=== PATIENT | female | born 1950 | race Caucasian/White ===

== ENCOUNTER 2018-08-30 08:32 | Inpatient (IN) ==
--- NOTE | 2018-08-30 09:07 | PROVIDER DOCUMENTATION ---
HPI-General Adult - General Chief Complaint: Shortness of Breath Stated Complaint: POSS PNEUMONIA ,SENT DOWN BY DR. Marrero Seen by Provider: 08/30/18 08:55 Source: patient Allergies/Adverse Reactions: Patient Allergies Allergy/AdvReac Type Severity Reaction Status Date / Time sulfamethoxazole AdvReac ABDOMINAL Verified 03/13/18 17:57 [From Bactrim] PAIN trimethoprim [From Bactrim] AdvReac ABDOMINAL Verified 03/13/18 17:57 PAIN Home Medications: Home Medication List Medication Instructions Recorded Confirmed Last Taken Type RX: Budesonide/Formoterol Inhaler 1 puff INH BID 01/30/15 03/13/18 03/13/18 07:00 History [Symbicort 160/4.5 Microgm Inhaler] RX: Furosemide 40 mg PO PRN PRN 01/30/15 03/13/18 03/13/18 07:00 History RX: Tiotropium [place] Inhaler 1 puff INH RTDAILY 01/30/15 03/13/18 03/13/18 07:00 History [Spiriva] RX: Dicyclomine HCl [Bentyl] 20 mg PO DAILY PRN 08/27/15 03/13/18 Unknown History RX: Digoxin [Lanoxin] 1 each PO DAILY 08/27/15 03/13/18 03/13/18 07:00 History RX: Insulin Lispro [Humalog 15 units SUBQ DAILY 08/27/15 03/13/18 03/13/18 07:00 History Kwikpen U-100] RX: Magnesium Oxide [Mag-Ox] 400 mg PO DAILY 08/27/15 03/13/18 03/13/18 07:00 History RX: PRAVAstatin [Pravachol] 20 mg PO DAILY 08/27/15 03/13/18 03/12/18 20:00 History RX: Carvedilol [Coreg] 25 mg PO BID #0 tablet 09/09/15 03/13/18 03/13/18 07:00 Rx RX: Omeprazole [Prilosec] 40 mg PO DAILY #0 capsule 09/09/15 03/13/18 03/13/18 07:00 Rx RX: Ibuprofen 2 tab PO Q8H PRN PRN 09/17/17 03/13/18 Unknown History RX: Losartan [Cozaar] 50 mg PO DAILY 09/17/17 03/13/18 03/13/18 07:00 History RX: Potassium Chloride E.r. 10 meq PO DAILY 09/17/17 03/13/18 03/13/18 07:00 History [Klor-Con] RX: Trazodone [Desyrel] 150 mg PO HS PRN PRN 09/17/17 03/13/18 Unknown History Albuterol [Albuterol Neb] 2.5 mg INH RTQ6H #120 neb 09/22/17 03/13/18 Unknown Rx CefUROXIME [Ceftin] 500 mg PO Q12HR #28 tab 09/22/17 03/13/18 Unknown Rx RX: Citalopram Hydrobromide 20 mg PO QHS #30 tab 09/22/17 03/13/18 03/12/18 20:00 Rx [Citalopram HBr] RX: Prednisone See Taper PO DAILY #15 tab 09/22/17 03/13/18 Unknown Rx Insulin Glargine [Lantus] 50 unit SUBQ QHS 03/13/18 03/13/18 03/12/18 20:00 History - History of Present Illness -Gen Adult Nature of Presenting Problems: Pt. is 67 yof that presents with c/o SOB. Pt. has a Hx of COPD and her PCP sent her to the ED for evaluation. Pt. is on home O2 all the time and she reports she stopped smoking. Location of Pain/Injury: reports: none. denies: head, face, mouth, neck, chest, upper extremity, hand(s), abdomen, back, pelvis, genitalia, lower extremity, feet, upper body, lower body, generalized, other Pain Radiation: reports: no radiation. denies: arm(s), back, buttocks, chest, epigastric, feet, groin, jaw, flank (L), legs (lower), LLQ, LUQ, neck, periumbilical, flank (R), RLQ, RUQ, shoulder(s), scapula, scrotal, sternal notch, suprapubic, legs (upper), urethral, vaginal, other Quality of Pain: reports: none. denies: aching, burning, cramping, pressure, stabbing, throbbing, tightness Severity: reports: mild. denies: moderate, severe Onset/Duration: reports: gradual, 1 week ago Timing: reports: still present. denies: improving, gone now, constant, getting worse Context/Activities at Onset: reports: none. denies: light activity, moderate activity, vigorous activity, recent emotional stress, recent physical stress, recent trauma history, possible bad food, cold exposure, eating, out of country travel, rest, sleep, sexual activity, other Modifying Factors: improves with: nothing Associated Symptoms: reports: cough, shortness of breath. denies: denies symptoms, anxiety, arm pain, back/neck pain, chest pain, constipation, diaphoresis, diarrhea, dizziness, EENT symptoms, fatigue, fever/chills, genitourinary problems, headaches, heartburn, joint pain, loss of appetite, malaise, muscle aches, sinus congestion/drainage, nausea, rash, seizure, sensory/motor loss, pain with inspiration, swelling/mass in abdomen, syncope, vomiting, weakness, trouble walking, other Similar Symptoms Previously?: Yes Recently seen or treated by another doctor?: Yes Review of Systems - Adult - REVIEW OF SYSTEMS - ADULT Constitutional: reports: no symptoms reported Eyes: reports: no symptoms reported Ears, Nose, Mouth & Throat: reports: no symptoms reported Cardiovascular: reports: no symptoms reported Respiratory: reports: see HPI, cough, shortness of breath. denies: hemoptysis, pleurisy, wheezing Gastrointestinal: reports: no symptoms reported Genitourinary: reports: no symptoms reported Musculoskeletal: reports: no symptoms reported Integumentary: reports: no symptoms reported Neurological: reports: no symptoms reported Psychiatric: reports: no symptoms reported Past History - Adult - PAST MEDICAL HISTORY-ADULT Review of Records: reports: Old Records Reviewed, Nursing Assessment Review, Medications Reviewed, Social history reviewed & non-contributory. Major Childhood Illnesses: reports: denies history Cardiovascular: reports: HTN, hyperlipidemia Respiratory: reports: asthma, COPD Gastrointestinal: reports: denies history Musculoskeletal: reports: denies history Endocrine/Immune: reports: Diabetes - PRIOR SURGERIES/PROCEDURES Surgical/Procedure History: reports: BTL - IMMUNIZATION STATUS Childhood Immunizations: See Nurse Assessment Flu Vaccine: See Nurse Assessment - FAMILY HISTORY Family History: reviewed, not pertinent - SOCIAL HISTORY Smoking: quit greater than 1 year Physical Exam-General - PHYSICAL EXAM-ADULT Initial Vital Signs Reviewed: Yes - CONSTITUTIONAL General Appearance: alert, no apparent distress, obese. negative: thin, a nxious, lethargic, slow to respond, obtunded, combative - EYES Eyes: PERRL/EOMI, pink conjunctivae. negative: pale conjunctivae, scleral icterus, subconjunctival hemorrhage - HEAD, EARS, NOSE, MOUTH & THROAT HENMT: normocephalic/atraumatic, moist mucous membranes. negative: angioedema, frontal tenderness, maxillary tenderness - NECK Neck: non-tender, full range of motion, supple, normal inspection. negative: lymphadenopathy, trachial deviation, thyromegaly - RESPIRATORY Respiratory: no respiratory distress, no accessory muscle use, decreased breath sounds. negative: no pleuratic chest pain, respiratory distress, crackles, rales, rhonchi, stridor, wheezing - CARDIOVASCULAR Cardiovascular: normal peripheral pulses, regular rate, rhythm, no edema. negative: extra beats, friction rub, irregularly irregular - GASTROINTESTINAL (ABDOMEN) Abdominal Exam: normal bowel sounds, non tender, soft. negative: rigid, rebound, tenderness, hernia, mass - LYMPHATIC Lymphatic: no adenopathy. negative: axilla node tender, cervical node tenderness - MUSCULOSKELETAL Back Exam: normal inspection, no CVA tenderness, no vertebral tenderness. negative: scoliosis, swelling, vertebral tenderness Extremity: normal range of motion, non-tender, normal inspection. negative: deformity, erythema, inflammation, swelling, tenderness Peripheral Pulses: radial (R): 2+, radial (L): 2+ - SKIN Integumentary: normal color, normal turgor, warm/dry. negative: cyanosis, diaphoresis, jaundice, swelling, tenderness - NEUROLOGIC Neurologic: grossly normal, no motor/sensory deficits. negative: aphasia, facial droop, focal weakness, motor weakness, sensory deficit - PSYCHIATRIC Psych/Mental Status: normal mood/affect, normal thought content, normal thought process, oriented x 3. negative: anxious, paranoid, tearful Progress - PLAN OF CARE/RESULTS Progress/Plan/Lab Results: Vital Signs - 8 hr 08/30/18 08:48 Temperature 98.4 F Pulse Rate 98 H Respiratory Rate 22 Blood Pressure 106/75 O2 Sat by Pulse Oximetry 88 L Orders Category Date Time Status Cardiac Monitoring DIRECTED Care 08/30/18 08:53 Active IV Insertion ORDERED Care 08/30/18 08:53 Active Notify MD of + Sepsis Screen NOW Care 08/30/18 08:53 Active Notify Physician As Ordered Care 08/30/18 08:53 Active CHEST-1 VIEW [RAD] Stat Exams 08/30/18 08:53 Ordered BLOOD CULTURE [BLDCUL] Stat Lab 08/30/18 08:53 Uncollected CBC WITH DIFF [HEME] Stat Lab 08/30/18 08:53 Uncollected CK PROFILE [SP CHEM] Stat Lab 08/30/18 08:53 Uncollected COMPREHENSIVE METABOLIC PANEL [CHEM] Stat Lab 08/30/18 08:53 Uncollected LACTATE, PLASMA [CHEM] Q3H Lab 08/30/18 09:00 Uncollected LACTATE, PLASMA [CHEM] Q3H Lab 08/30/18 12:00 Uncollected LACTATE, PLASMA [CHEM] Q3H Lab 08/30/18 15:00 Uncollected PROTIME WITH INR [COAG] Stat Lab 08/30/18 08:53 Uncollected PTT [COAG] Stat Lab 08/30/18 08:53 Uncollected TROPONIN T Stat Lab 08/30/18 08:53 Uncollected URINALYSIS W/POSS RFLX CULT [URINALYSIS] Stat Lab 08/30/18 08:53 Uncollected Oxygen Device Stat Oth 08/30/18 08:53 Active Laboratory Tests 08/30/18 08/30/18 08/30/18 09:22 09:22 09:22 WBC 6.68 RBC 4.34 Hgb 12.1 Hct 39.1 MCV 90.1 MCH 27.9 MCHC 30.9 L RDW Std Deviation 15.4 H Plt Count 201 MPV 10.6 H Immature Gran % (Auto) 0.4 Neut % (Auto) 67.2 Lymph % (Auto) 21.0 [place] % (Auto) 9.3 Eos % (Auto) 1.8 Baso % (Auto) 0.3 Immature Gran # (Auto) 0.03 Neut # (Auto) 4.49 Lymph # (Auto) 1.40 [place] # (Auto) 0.62 H Eos # (Auto) 0.12 Baso # (Auto) 0.02 PT 12.4 INR 0.86 PTT (Actin FS) 37.4 Specimen Type Sample Site pH pCO2 pO2 HCO3 Base Excess Oxyhemoglobin ABG O2 Sat (Calculated) ABG O2 Saturation ABG Carboxyhemoglobin ABG Methemoglobin Jul[place] Test A-a O2 Difference Total Hemoglobin Lactate Liter Flow Blood Gas Modality FiO2 % Sodium 142 Potassium 4.1 Chloride 99 Carbon Dioxide 33 Anion Gap 10 BUN 23 H Creatinine 0.9 Estimated GFR/1.73 m2 > 60 BUN/Creatinine Ratio 26 Glucose 229 H Calculated Osmolality 294 Calcium 9.1 Total Bilirubin 0.43 AST 21 ALT 24 Alkaline Phosphatase 108 H Creatine Kinase 64 Troponin T Total Protein 6.5 Albumin 3.8 Globulin 2.7 Albumin/Globulin Ratio 1.4 Plasma Lactate Urine Source Urine Color Urine Turbidity Urine pH Ur Specific [place] Urine Protein Ur Glucose (Stick) Ur Ketones (Stick) Urine Blood Urine Nitrite Urine Bilirubin Urobilinogen Dipstick Urine Leukocytes Urine WBC (Auto) Urine RBC (Auto) U Epithel Cells (Auto) Urine Bacteria (Auto) 08/30/18 08/30/18 08/30/18 09:22 09:22 10:12 WBC RBC Hgb Hct MCV MCH MCHC RDW Std Deviation Plt Count MPV Immature Gran % (Auto) Neut % (Auto) Lymph % (Auto) [place] % (Auto) Eos % (Auto) Baso % (Auto) Immature Gran # (Auto) Neut # (Auto) Lymph # (Auto) [place] # (Auto) Eos # (Auto) Baso # (Auto) PT INR PTT (Actin FS) Specimen Type ARTERIAL Sample Site R RADIAL pH 7.31 L pCO2 71 H* pO2 74 HCO3 30.4 H Base Excess 7.2 H Oxyhemoglobin 92.7 L ABG O2 Sat (Calculated) 16.0 ABG O2 Saturation 95.7 ABG Carboxyhemoglobin 2.00 ABG Methemoglobin 1.1 [place] Test YES A-a O2 Difference 65.0 Total Hemoglobin 12.2 Lactate 0.80 Liter Flow 3.0 Blood Gas Modality CANNULA FiO2 % 32.0 Sodium Potassium Chloride Carbon Dioxide Anion Gap BUN Creatinine Estimated GFR/1.73 m2 BUN/Creatinine Ratio Glucose Calculated Osmolality Calcium Total Bilirubin AST ALT Alkaline Phosphatase Creatine Kinase Troponin T < 0.010 Total Protein Albumin Globulin Albumin/Globulin Ratio Plasma Lactate 1.1 Urine Source Urine Color Urine Turbidity Urine pH Ur Specific [place] Urine Protein Ur Glucose (Stick) Ur Ketones (Stick) Urine Blood Urine Nitrite Urine Bilirubin Urobilinogen Dipstick Urine Leukocytes Urine WBC (Auto) Urine RBC (Auto) U Epithel Cells (Auto) Urine Bacteria (Auto) 08/30/18 11:00 WBC RBC Hgb Hct MCV MCH MCHC RDW Std Deviation Plt Count MPV Immature Gran % (Auto) Neut % (Auto) Lymph % (Auto) [place] % (Auto) Eos % (Auto) Baso % (Auto) Immature Gran # (Auto) Neut # (Auto) Lymph # (Auto) [place] # (Auto) Eos # (Auto) Baso # (Auto) PT INR PTT (Actin FS) Specimen Type Sample Site pH pCO2 pO2 HCO3 Base Excess Oxyhemoglobin ABG O2 Sat (Calculated) ABG O2 Saturation ABG Carboxyhemoglobin ABG Methemoglobin Jul[place] Test A-a O2 Difference Total Hemoglobin Lactate Liter Flow Blood Gas Modality FiO2 % Sodium Potassium Chloride Carbon Dioxide Anion Gap BUN Creatinine Estimated GFR/1.73 m2 BUN/Creatinine Ratio Glucose Calculated Osmolality Calcium Total Bilirubin AST ALT Alkaline Phosphatase Creatine Kinase Troponin T Total Protein Albumin Globulin Albumin/Globulin Ratio Plasma Lactate Urine Source CLEAN CATCH Urine Color YELLOW Urine Turbidity CLEAR Urine pH 5.5 Ur Specific [place] 1.017 Urine Protein NEGATIVE Ur Glucose (Stick) NEGATIVE Ur Ketones (Stick) NEGATIVE Urine Blood NEGATIVE Urine Nitrite NEGATIVE Urine Bilirubin NEGATIVE Urobilinogen Dipstick NORMAL Urine Leukocytes NEGATIVE Urine WBC (Auto) <10 Urine RBC (Auto) <10 U Epithel Cells (Auto) <10 Urine Bacteria (Auto) NEGATIVE Discussed results and plan of care with patient. Patient agrees with plan and verbalizes understanding. Result Diagrams: 08/30/18 09:22 08/30/18 09:22 - EKG 1 Time of EKG reading by physician:: 09:12 EKG Read and Signed by:: Silvana Arreaga EKG Interpretation (*Must complete 3 of following elements*): Normal Rate: 95 Rhythm: NSR - XRAY 1 XRAY Study: Chest ([facility] [address] , [address], [place] [address] Department of Imaging Patient: JUAN KERR Date: 08/30/18#: [id number] : 1950ADM Status: PRE ERAcct#: [id number] Age/Sex: 67/FRoom/Bed: Loc: ED Ordering Physician: Silvana Arreaga MD Family Physician: Joaquín Cotto MD Reason for Procedure: SOB Signed EXAM: CHEST-1 VIEW 08/30/2018 HISTORY: SOB TECHNIQUE: AP portable upright at 0904 COMMENT: There is ill-defined opacity in the left lower lobe which was not as apparent on the previous study of 02/08/2018. The right lung is essentially stable. The heart size is slightly enlarged. IMPRESSION: Atelectasis versus pneumonia left lower lobe. Electronically signed by Guille Arellano 08/30/2018 9:08 AM 08/30/18 09 Interpreting Physician: Guille Arellano MD Dictated Date/Time: 08/30/18 0908 cc: Silvana Arreaga MD; Joaquín Cotto MD) XRAY Interpretation: See note - CONSULTS/PCP/HOSPITALIST Notification #1 *Consult/PCP/Hospitalist*: Ryan Manuel Time Discussed: 11:32 Reason/Comments: Admission Consult Disposition: Will see in ED, Admit Departure - Departure Date of Disposition Decision: 08/30/18 Time of Disposition Decision: 11:23 DIAGNOSIS: COPD exacerbation Pneumonia Qualifiers: Pneumonia type: due to unspecified organism Laterality: unspecified laterality Lung location: unspecified part of lung Qualified Code(s): J18.9 - Pneumonia, unspecified organism Disposition: ADMITTED INPATIENT 09 Certified Medical Emergency: Emergent Condition: Stable Referrals and Follow-Ups: Joaquín Cotto MD [Primary Care Provider] - - Critical Care Note This patient required my direct & personal management of CC.: No Attestation - Physician/ BLANCA Attestation Patient care was provided by Advanced Practice Provider:: Yes Advanced Practice Provider:: Trever Harrell Advanced Practice Provider documentation review:: The Mid-level provider documentation, treatment plan and medical decision making was reviewed by the physician who agrees with all treatment and medical decision making by the P. The physician spent face to face time with patient:: No Advanced Practice Provider documentation review:: Supervising physician onsite and consulted in the evaluation and care of this patient. The physician did not have a face to face encounter with the patient.
--- NOTE | 2018-08-30 09:11 | Diag Imaging Result Doc PS360 ---
EXAM: CHEST-1 VIEW 08/30/2018 HISTORY: SOB TECHNIQUE: AP portable upright at 0904 COMMENT: There is ill-defined opacity in the left lower lobe which was not as apparent on the previous study of 02/08/2018. The right lung is essentially stable. The heart size is slightly enlarged. IMPRESSION: Atelectasis versus pneumonia left lower lobe. Electronically signed by Guille Arellano 08/30/2018 9:08 AM
[2018-08-30] MEDS ORDERED: ROCEPHIN 1 GM in NS 50 ML IV ONE (09:21)
[2018-08-30] MEDS ORDERED: SOLU-MEDROL IV ONE (09:22)
[2018-08-30] MEDS ORDERED: ZITHROMAX 500 MG/NS 500 MG/250 ML IVPB IV ONE (09:22)
[2018-08-30] MEDS ORDERED: DUONEB (A & A) INH ONE (09:22)
[2018-08-30 09:35] LABS: BASO# 0.02 X1000 (0.0-0.2); BASO% 0.3 % (0.0-0.8); EOS# 0.12 X1000 (0.0-0.7); EOS% 1.8 % (0.0-10.0); HEMATOCRIT 39.1 % (37.0-47.0); HEMOGLOBIN 12.1 g/dL (12.0-16.0); IMM GRAN# 0.03 X1000 (0.0-0.04); IMM GRAN% 0.4 % (0.0-0.5); MCH 27.9 PG (27-31); MCHC 30.9 g/dL (33-37); MCV 90.1 FL (81-99); MONO# 0.62 X1000 (0.11-0.59); MONO% 9.3 % (1.7-9.3); MPV 10.6 FL (7.4-10.4); NEUT# 4.49 X1000 (1.4-6.5); NEUT% 67.2 % (42.2-75.2); PLT 201 X1000 (130-400); RBC 4.34 XMIL (4.2-5.4); RDW 15.4 % (11.5-14.5); WBC 6.68 X1000 (4.8-10.8)
[2018-08-30 09:45] LABS: INR 0.86; PROTIME 12.4 Seconds (11.0-16.0)
[2018-08-30 09:46] LABS: PTT 37.4 Seconds (22.3-41.8)
--- NOTE | 2018-08-30 09:47 | EKG Report ---
Test Performed on : 08/30/2018 09:09:37 AM Test Reason : SOB Blood Pressure : / mmHG Vent. Rate : 095 BPM Atrial Rate : 095 BPM P-R Int : 112 ms QRS Dur : 082 ms QT Int : 344 ms P-R-T Axes : 044 002 -09 degrees QTc Int : 432 ms Normal sinus rhythm. Normal ECG When compared with ECG of 22-SEP-2017 00:31, Inverted T waves have replaced nonspecific T wave abnormality in Inferior leads Unconfirmed Result
[2018-08-30 09:55] LABS: AGAP 10; ALB/GLOB RATIO 1.4; ALBUMIN 3.8 g/dL (3.5-5.0); ALKALINE PHOSPHATASE 108 U/L (32-104); BUN 23 mg/dL (8-22); CALCIUM 9.1 mg/dL (8.8-10.2); CHLORIDE 99 mmol/L (98-107); CK PROFILE 64 U/L (24-173); COSMO 294; CREATININE 0.9 mg/dL (0.5-0.9); ESTIMATED GFR > 60; GLUCOSE 229 mg/dL (70-104); GOT 21 U/L (10-30); GPT 24 U/L (10-36); POTASSIUM 4.1 mmol/L (3.5-5.1); SODIUM 142 mmol/L (136-145); TCO2 33 mmol/L (25-35); TOTAL BILIRUBIN 0.43 mg/dL (0.20-1.00); TOTAL PROTEIN 6.5 g/dL (6.3-8.3)
[2018-08-30 10:22] LABS: ALLEN TEST YES; BE 7.2 mmoll (-3.0-3.0); BLOOD TYPE ARTERIAL; HCO3-(ACT) 30.4 mmoll (20.0-26.0); METHB 1.1 % (0.0-1.5); O2HB 92.7 % (95.0-99.0); PO2(98.6) 74 mmHg (60-100); SAMPLE BLOOD; SAO2 95.7 % (95.0-100.0); THB 12.2 g/dL (11.5-17.4); pH(98.6) 7.31 (7.35-7.45)
[2018-08-30 10:25] LABS: MODALITY CANNULA; PCO2(98.6) 71 mmHg (35-45)
[2018-08-30 11:12] LABS: BILIRUBIN URINE NEGATIVE (NEGATIVE); BLOOD URINE NEGATIVE (NEGATIVE); COLOR YELLOW; GLUCOSE URINE NEGATIVE (NEGATIVE); KETONE URINE NEGATIVE (NEGATIVE); LEUKOCYTES URINE NEGATIVE (NEGATIVE); NITRITE URINE NEGATIVE (NEGATIVE); PH URINE 5.5; PROTEIN URINE NEGATIVE (NEGATIVE); SP GRAVITY URINE 1.017; TURBIDITY URINE CLEAR (CLEAR); URINE SOURCE CLEAN CATCH; UROBILINOGEN URINE NORMAL (NORMAL)
[2018-08-30 11:14] LABS: UR EPITHELIAL CELLS <10 /HPF (<10); URINE BACTERIA NEGATIVE /HPF; URINE RBC <10 /HPF (<10); URINE WBC <10 /HPF (<10)
[2018-08-30] MEDS ORDERED: DUONEB (A & A) INH PRN (13:38)
[2018-08-30] MEDS ORDERED: LASIX IV ONE (13:47)
--- NOTE | 2018-08-30 15:00 | Diag Imaging Result Doc PS360 ---
EXAM: CT THORAX W/CONTRAST 08/30/2018 HISTORY: worsening resp function TECHNIQUE: This exam was performed using automated exposure control, adjustment of mA or kV according to patient size, and/or use of iterative reconstruction technique. COMMENT: There are severe emphysematous changes. There are patchy opacities in the lung bases particularly in the lower lingula anteromedial upper lobes and middle lobe. This was present at the time the previous study of 09/16/2017. There may actually be slight improvement. Most of this is likely due to fibrosis. The liver, spleen, adrenal glands, and visualized portions of the pancreas are stable in appearance. There are some large hepatic cysts in the left lobe. There is calcification of the mitral valve annulus and multiple calcifications in the coronary arteries are present. There are nonspecific nodes in the paratracheal and aorticopulmonary window regions which have not changed significantly since the previous study. The regional skeleton is stable in appearance. IMPRESSION: COPD. Chronic scarring. Stable mediastinal adenopathy. Electronically signed by Guille Arellano 08/30/2018 2:58 PM
--- NOTE | 2018-08-30 15:24 | HISTORY AND PHYSICAL ---
PRIMARY CARE PHYSICIAN: Joaquín Cotto MD. MARINE PHOTOGRAPHER: Billie Nicole MD. CHIEF COMPLAINT: Dyspnea. HISTORY OF PRESENT ILLNESS: Mrs. Chase is a 67-year-old female with a history of oxygen- dependent COPD, obstructive sleep apnea, type 2 diabetes, who presents with 2 weeks of waxing and waning dyspnea significantly worse over the past few days. She has been reporting low-grade fever, cough with sputum production and actually had some red-tinged sputum 2 weeks ago. She has been complaining of some mild orthopnea and lower extremity edema and some chest discomfort but mainly with coughing. She went to her PCP's office today, who directed to the ER for evaluation for pneumonia. In the ER, she had a chest x-ray done, which shows atelectasis versus pneumonia in the left lower lobe. Her lab work is significant for mild kfkiz-fr-gjofkel hypercapnic respiratory failure and her chemistry is essentially unremarkable. Given her symptoms and history, we are going to admit her for further treatment and evaluation. PAST MEDICAL HISTORY: 1. COPD on home O2. 2. Type 2 diabetes. 3. Hypertension. 4. Morbid obesity. 5. Obstructive sleep apnea. 6. History of respiratory failure requiring intubation. 7. Hyperlipidemia. PAST SURGICAL HISTORY: She has had a tubal ligation, tracheostomy with tracheostomy reversal. FAMILY HISTORY: Significant for diabetes, coronary artery disease, hypertension, hyperlipidemia. SOCIAL HISTORY: She lives with her sister. She is . She quit smoking around 2 years ago. No current tobacco, alcohol, or drug use. She does family members who smoke but they do not smoke in the house. ALLERGIES: Bactrim. HOME MEDICATIONS: Have not been compiled by the nursing staff. REVIEW OF SYSTEMS: A 14-point review of systems obtained and found to be negative except for the HPI. PHYSICAL EXAMINATION: VITAL SIGNS: Blood pressure is 155/62, heart rate is 77, respiratory rate 16, O2 saturation is 92% on 3 L, temperature is 98.4. GENERAL: Obese, female lying in the hospital bed in no acute distress. NEUROLOGICAL: Awake, alert, and oriented. Follows commands. No focal deficits. HEENT: Head is atraumatic and normocephalic. Her pupils are equal, round, and reactive to light. Oral mucosa is moist. NECK: Her trachea is midline. There is no JVD. CHEST: Diminished at the bases but fairly adequate air movement. No wheezing. CARDIOVASCULAR: Regular rate and rhythm. S1 and S2 is noted. There are no murmurs. GASTROINTESTINAL: Soft, nondistended, nontender. Bowel sounds are active. EXTREMITIES: Trace edema. Pulses diminished but palpable bilaterally. DIAGNOSTIC DATA: Chest x-ray shows left lower lobe atelectasis, which was not previously present, and the heart size is slightly enlarged. EKG sinus rhythm, no acute ST or T wave abnormalities. WBC 6.68, hemoglobin 12.1, hematocrit 39.1, platelet count 201. INR 0.86. ABG on nasal cannula 3 L: pH 7.31, CO2 71, O2 74, bicarbonate 30.4. Sodium 142, potassium 4.1, chloride 99, CO2 33, anion gap 10, BUN 23, creatinine 0.9, glucose is 229, calcium 9.1. LFTs are negative. Troponin, ProBNP negative. Albumin 3.8. UA negative. ASSESSMENT AND PLAN: 1. Fhsqv-ai-vifufle hypercapnic respiratory failure. Will start with a very mild dose of Lasix, breathing treatments, antibiotics, and steroids, and recheck a blood gas in the next few hours. If there is no improvement, she may need BiPAP but for now will hold off. Will also check a thorax CT, echocardiogram, and cardiac enzymes. 2. Chronic obstructive pulmonary disease exacerbation: As above. 3. Community-acquired pneumonia: As above. Continue breathing treatments, antibiotics, aggressive pulmonary toilet. Blood and sputum cultures have been ordered. 4. Question of congestive heart failure: Once small dose of Lasix has been given then will check an echocardiogram and cardiac enzymes. 5. Type 2 diabetes. Sliding scale insulin and pattern blood sugars have been ordered as has a hemoglobin A1c. 6. Morbid obesity. Weight reduction highly advised. 7. Deep venous thrombosis prophylaxis with Lovenox. 8. Further recommendations to follow. Dictated by NISREEN Hooper for Asa Manuel MD cc: NISREEN Hooper MD I agree with most components of history, physical assessment and plan. A separate addendum has been dictated. [facility]ITALKaitlyn
[2018-08-30] MEDS: DUONEB (A & A) INH SCH ×3 (15:26→23:25)
[2018-08-30] MEDS: TYLENOL PO PRN ×2 (17:33→20:20)
[2018-08-30] MEDS: LOVENOX SUBQ SCH (17:34)
[2018-08-30] MEDS: SOLU-MEDROL IV SCH (17:37)
[2018-08-30] MEDS ORDERED: BENTYL PO PRN (18:12)
[2018-08-30] MEDS ORDERED: LANOXIN IV ONE (18:12)
--- NOTE | 2018-08-30 18:54 | HISTORY AND PHYSICAL ---
Addendum to history and physical dictated by the nurse practitioner. I agree with most components of history, physical, assessment and plan. HISTORY OF PRESENT ILLNESS: In brief, Ms. Chase is a 67-year-old, lady with history of COPD and chronic hypoxic respiratory failure, who is admitted for worsening progressive shortness of breath. She had failed outpatient antibiotic therapy. SUBJECTIVE: The patient currently is feeling a little better than she has been when she came to the emergency room. She is complaining of some cough. She also had subjective fever. She is making some sputum. We discussed about her exam findings, answered all of her questions. She reports history of insulin-dependent diabetes mellitus, previous history of intubation for COPD exacerbation, nighttime use of BiPAP. Continuous use of oxygen. OBJECTIVE: Vital Signs: Currently, vitals, temperature 97.8, pulse 119 per minute, respiratory rate 19 per minute, blood pressure 173/84. She is saturating 90% on 2 L nasal cannula. General: On physical examination, she appears in mild distress. No pallor, cyanosis, clubbing, or icterus. Oral cavity is moist. Decreased breath sounds bilaterally, likely because of COPD. No wheezes. No rhonchi or crackles that I could appreciate. Cardiovascular: S1, S2. Tachycardic. No murmur, rub, or gallop. Abdomen: Soft, nontender. No lower extremity edema except bilateral lower extremity edema extending up to mid andrea level. LABS: Suggestive of no leukocytosis. Normal blood counts, normal platelet count. Normal coagulation profile. Acute hypercarbic respiratory failure with pCO2 of 71, and pH of 7.31. She has had chronic hypercarbia in the past. BMP suggestive of normal kidney function, hyperglycemia. Normal troponins. ASSESSMENT AND PLAN: 1. Acute hypercarbic respiratory failure. 2. Acute exacerbation of chronic obstructive pulmonary disease. 3. History of insulin-dependent diabetes mellitus. 4. Atrial fibrillation with rapid ventricular rate as informed by history. 5. History of chronic use of nighttime BiPAP. 6. History of morbid obesity. 7. Obstructive sleep apnea. 8. Histoyr of multiple E coli pneumonia. 9. Hyperlipidemia. PLAN: I will start patient on albuterol/ipratropium nebulization, nighttime BiPAP treatment. Insulin, home dose of Lasix and beta blockers. I will follow up with sputum culture results and blood culture results. I will start her on empiric antibiotics. Plan of care discussed with the patient and patient's daughter briefly. All of their questions have been answered. cc: Asa Manuel MD MTDD
[2018-08-30] MEDS: COREG PO SCH ×2 (18:56→20:23)
[2018-08-30] MEDS: SYMBICORT 160/4.5 MICROGM INHALER INH SCH (19:30)
[2018-08-30] MEDS: HUMALOG SUBQ SCH ×2 (20:22→22:43)
[2018-08-30] MEDS: BASAGLAR SUBQ SCH (20:37)
[2018-08-30] MEDS ORDERED: INSULIN PEN NEEDLES ONE (20:40)
[2018-08-30] MEDS ORDERED: COREG PO SCH (21:00)
[2018-08-30] MEDS ORDERED: BASAGLAR SUBQ SCH (21:00)
--- NOTE | 2018-08-30 23:28 | ECHO REPORT ---
ORDER DATE: 08/30/2018 SUMMARY: 1. Very difficult study for interpretation due to very limited acoustic window quality. Intravenous echo contrast agent was utilized to enhance endocardial definition. 2. Aortic valve without evidence of structural abnormality and appears to open adequately on 2- dimensional images. Peak gradient across the aortic valve is approximately 14 mmHg. Mitral annular calcification is demonstrated. Tricuspid valve is without evidence of structural abnormality while pulmonic valves is not well demonstrated. There is trace tricuspid regurgitation. The aortic root is normal in size. 3. Normal left ventricular dimension suggested. Estimated left ventricular ejection fraction appears to be at least 70%. No wall motion abnormality can be appreciated. Left atrium, right atrium, right ventricle are grossly in normal size. 4. No pericardial effusion. 5. Inferior vena cava not well demonstrated. cc: MD Baldomero Rojas CRNP
[2018-08-31] MEDS: SOLU-MEDROL IV SCH ×3 (02:23→18:31)
[2018-08-31] MEDS: DUONEB (A & A) INH SCH ×6 (03:40→23:17)
[2018-08-31 03:53] LABS: ALLEN TEST YES; BE 9.4 mmoll (-3.0-3.0); BLOOD TYPE ARTERIAL; HCO3-(ACT) 32.1 mmoll (20.0-26.0); METHB 1.3 % (0.0-1.5); O2(CT) 16.3 mL/dL (15.0-23.0); O2HB 91.7 % (95.0-99.0); PO2(98.6) 68 mmHg (60-100); SAMPLE BLOOD; SAO2 94.9 % (95.0-100.0); THB 12.6 g/dL (11.5-17.4); pH(98.6) 7.37 (7.35-7.45)
[2018-08-31 03:54] LABS: MODALITY BI PAP; PCO2(98.6) 64 mmHg (35-45)
[2018-08-31] MEDS: HUMALOG SUBQ SCH ×5 (06:15→23:21)
[2018-08-31 06:44] LABS: BASO# 0.02 X1000 (0.0-0.2); BASO% 0.4 % (0.0-0.8); HEMATOCRIT 39.8 % (37.0-47.0); HEMOGLOBIN 12.5 g/dL (12.0-16.0); IMM GRAN# 0.03 X1000 (0.0-0.04); IMM GRAN% 0.6 % (0.0-0.5); LYMPH% 17.3 % (20.5-51.1); MCHC 31.4 g/dL (33-37); MONO# 0.55 X1000 (0.11-0.59); MONO% 10.6 % (1.7-9.3); MPV 11.1 FL (7.4-10.4); NEUT# 3.71 X1000 (1.4-6.5); NEUT% 71.1 % (42.2-75.2); PLT 205 X1000 (130-400); RBC 4.47 XMIL (4.2-5.4); WBC 5.21 X1000 (4.8-10.8)
[2018-08-31 07:02] LABS: HEMOGLOBIN A1C 8.5 % (4.8-6.0)
[2018-08-31 07:17] LABS: AGAP 13; BUN 24 mg/dL (8-22); CALCIUM 8.9 mg/dL (8.8-10.2); CHLORIDE 97 mmol/L (98-107); COSMO 292; CREATININE 0.7 mg/dL (0.5-0.9); ESTIMATED GFR > 60; GLUCOSE 260 mg/dL (70-104); POTASSIUM 4.3 mmol/L (3.5-5.1); SODIUM 140 mmol/L (136-145); TCO2 30 mmol/L (25-35)
[2018-08-31] MEDS: SYMBICORT 160/4.5 MICROGM INHALER INH SCH ×2 (08:12→19:47)
[2018-08-31] MEDS: ROCEPHIN 1 GM in NS 50 ML IV SCH (09:01)
[2018-08-31] MEDS: PRAVACHOL PO SCH (09:02)
[2018-08-31] MEDS: COREG PO SCH ×2 (09:02→21:40)
[2018-08-31] MEDS: LANOXIN PO SCH (09:02)
[2018-08-31] MEDS: COZAAR PO SCH (09:02)
[2018-08-31] MEDS: MAG-OX PO SCH (09:02)
[2018-08-31] MEDS: PRILOSEC PO SCH (09:03)
[2018-08-31] MEDS: LASIX PO SCH (09:03)
[2018-08-31] MEDS: ZITHROMAX 500 MG/NS 500 MG/250 ML IVPB IV SCH (10:56)
--- NOTE | 2018-08-31 11:59 | PROGRESS NOTE ---
DATE: 08/31/2018 INTERVAL HISTORY: No acute event overnight. She is feeling better today. Denies any chest pain. She is feeling congested inside the chest, and is not able to bring up sputum. Denies any nausea, vomiting, or abdominal pain. Her sugars are better. We discussed about her heart rate and blood sugar control, I answered all of her questions. PHYSICAL EXAMINATION: Vital Signs: Currently, temperature 98.1 degrees, pulse 91, respiratory 26, blood pressure 140/48 and saturating 91% on 4 L nasal cannula. General: She does not appear in any acute distress. HEENT: Oral cavity is moist. No pharyngeal exudate or tonsillitis. No cervical lymphadenopathy. No postnasal drip. Lungs: Air entry bilaterally decreased. No wheeze or rhonchi. Mild infrascapular crackles. Cardiovascular: S1, S2. Irregularly irregular. No murmur, rub, or gallop. She is mildly tachycardic with heart rate of 96 at the time of my evaluation. Abdomen: Obese, soft, and nontender. Extremities: No lower extremity edema except only mild edema, which is better today than yesterday. Input and output not charted appropriately. LABORATORY: Labs suggestive of no leukocytosis. Stable hemoglobin, hematocrit, and platelet count. ABG suggestive of pH of 7.37, pCO2 of 64, compensated. BMP suggestive of normal kidney function. She continues to have hyperglycemia with blood sugar in 200s to 300s range for which I will adjust the blood sugar levels. Her troponin's were negative. Telemetry charted suggestive of sinus tachycardia with premature atrial contractions. Echocardiogram performed yesterday was suggestive of normal left ventricular ejection fraction of about 70% without any wall motion abnormality. It was a difficult study. ASSESSMENT AND PLAN: 1. Acute hypercarbic respiratory failure on top of chronic hypoxic hypercarbic respiratory failure due to acute COPD exacerbation. Continue patient on albuterol ipratropium nebulization every 4 hours scheduled with intravenous steroids and home Symbicort. Continue intravenous ceftriaxone and azithromycin. Follow up with blood culture and sputum culture results. 2. History of atrial fibrillation with rapid ventricular rate. Currently, rate in acceptable range. Continue patient's home digoxin, carvedilol, and Lasix. She is not listed to be taking any anticoagulation. She received IV digoxin yesterday. And I will order additional IV medications as tolerated. 3. History of insulin-dependent diabetes mellitus. Continue home dose of glargine with lispro and sliding scale insulin. I will adjust and in fact increased the dose today according as she is on steroids which is driving her sugars to go high. 4. Others. Continue home dicyclomine for abdominal discomfort, which is her home medication, losartan for essential hypertension, pravastatin for hyperlipidemia. 5. Continue nighttime BiPAP, which the patient has been using at home. 6. Disposition: Patient remains inside the hospital for need for intravenous steroids and frequent nebulization, and closely monitor her respiratory status. Plan of care discussed with the patient and her daughter at bedside. All of their questions have been answered. cc: Asa Manuel MD MTDD
[2018-08-31] MEDS: BIDEX PO SCH ×3 (12:54→21:41)
[2018-08-31] MEDS: LOVENOX SUBQ SCH (18:31)
[2018-08-31] MEDS ORDERED: LANOXIN IV ONE (19:17)
[2018-08-31] MEDS ORDERED: SOLU-MEDROL IV SCH (21:35)
[2018-08-31] MEDS: NEURONTIN PO SCH (21:41)
[2018-08-31] MEDS: BASAGLAR SUBQ SCH (21:41)
[2018-09-01] MEDS: SOLU-MEDROL IV SCH ×3 (01:28→21:48)
[2018-09-01] MEDS: DUONEB (A & A) INH SCH ×6 (03:41→23:03)
[2018-09-01] MEDS: HUMALOG SUBQ SCH ×7 (06:18→21:49)
[2018-09-01 07:37] LABS: BASO# 0.01 X1000 (0.0-0.2); BASO% 0.1 % (0.0-0.8); HEMATOCRIT 40.9 % (37.0-47.0); HEMOGLOBIN 12.8 g/dL (12.0-16.0); IMM GRAN# 0.03 X1000 (0.0-0.04); IMM GRAN% 0.4 % (0.0-0.5); LYMPH# 1.28 X1000 (1.2-3.4); LYMPH% 16.8 % (20.5-51.1); MCH 27.6 PG (27-31); MCHC 31.3 g/dL (33-37); MCV 88.3 FL (81-99); MONO# 0.42 X1000 (0.11-0.59); MONO% 5.5 % (1.7-9.3); NEUT% 77.2 % (42.2-75.2); PLT 222 X1000 (130-400); RBC 4.63 XMIL (4.2-5.4); RDW 14.9 % (11.5-14.5); WBC 7.64 X1000 (4.8-10.8)
[2018-09-01 08:02] LABS: AGAP 14; BUN 28 mg/dL (8-22); CALCIUM 9.4 mg/dL (8.8-10.2); CHLORIDE 98 mmol/L (98-107); COSMO 298; CREATININE 0.7 mg/dL (0.5-0.9); ESTIMATED GFR > 60; GLUCOSE 232 mg/dL (70-104); MAGNESIUM 2.2 mg/dL (1.5-2.7); POTASSIUM 3.7 mmol/L (3.5-5.1); SODIUM 143 mmol/L (136-145); TCO2 31 mmol/L (25-35)
[2018-09-01] MEDS: SYMBICORT 160/4.5 MICROGM INHALER INH SCH ×2 (08:26→19:36)
[2018-09-01] MEDS: BIDEX PO SCH ×3 (08:47→21:48)
[2018-09-01] MEDS: MAG-OX PO SCH (08:48)
[2018-09-01] MEDS: PRILOSEC PO SCH (08:48)
[2018-09-01] MEDS: PRAVACHOL PO SCH (08:48)
[2018-09-01] MEDS: COREG PO SCH ×2 (08:48→21:48)
[2018-09-01] MEDS: LANOXIN PO SCH (08:48)
[2018-09-01] MEDS: NEURONTIN PO SCH ×3 (08:49→21:48)
[2018-09-01] MEDS: ROCEPHIN 1 GM in NS 50 ML IV SCH (08:49)
[2018-09-01] MEDS: COZAAR PO SCH (08:49)
[2018-09-01] MEDS: LASIX PO SCH (08:49)
[2018-09-01] MEDS: ZITHROMAX 500 MG/NS 500 MG/250 ML IVPB IV SCH (11:49)
[2018-09-01] MEDS ORDERED: BASAGLAR SUBQ ONE (14:23)
--- NOTE | 2018-09-01 15:01 | PROGRESS NOTE ---
DATE: 09/01/2018 INTERVAL HISTORY: No acute event overnight, patient has been feeling fine. Denies any complaints. Denies chest pain. Her shortness of breath is significantly improved. She is not coughing as much as she used to. Currently vitals suggest temperature of 98.1 degrees, pulse of 104 per minute, respiratory 16 per minute, blood pressure of 173/80, she is saturating 93% on 3 L nasal cannula. PHYSICAL EXAMINATION: General: Morbidly obese, not in any acute distress. Oral cavity is moist. Air entry bilaterally equal. No wheeze or rhonchi. Mild inspiratory crackles bilateral infrascapular region. S1, S2 normal. No murmur, rub, or gallop. Abdomen: Soft, nontender. No lower extremity edema. LABS: Suggestive of no leukocytosis, eosinophil count of 0, normal platelet count. Electrolytes suggestive of normal electrolytes, normal kidney function except elevated BUN likely in the setting of steroid use, hyperglycemia. Microbiology, sputum culture prelim result has not shown any growth, blood culture no growth till date. ASSESSMENT AND PLAN: 1. Acute hypercarbic respiratory failure on top of chronic hypoxic hypercarbic respiratory failure due to acute chronic obstructive pulmonary disease exacerbation. Continue albuterol ipratropium nebulization every 4 hours scheduled with intravenous steroids and home Symbicort, decrease steroid frequency starting today. My plan is to eventually change it to p.o. steroids. Continue intravenous ceftriaxone, azithromycin and follow up with final sputum and blood culture results. 2. History of paroxysmal atrial fibrillation with rapid ventricular rate currently sinus tachycardia, patient had not been on anticoagulation in the past. Patient states that the sky cap did not put her on, currently she only has sinus tachycardia. Continue home regimen of digoxin, carvedilol and Lasix. 3. History of insulin-dependent diabetes mellitus with uncontrolled hyperglycemia because of steroid use. Continue home glargine and lispro with mealtime with sliding scale insulin. I will give her additional glargine dose in addition to the regimen she is already on. 4. Others, continue home dicyclomine for abdominal discomfort, losartan with carvedilol for essential hypertension, pravastatin for hyperlipidemia, nighttime BiPAP which is her home. DISPOSITION: The patient remains inside the hospital. Plan is to transition her to oral steroids and potentially discharge in next 24 to 48 hours. cc: MD KRISTIE Mendoza
[2018-09-01] MEDS: LOVENOX SUBQ SCH (18:54)
[2018-09-01] MEDS: BASAGLAR SUBQ SCH (21:48)
[2018-09-02] MEDS: DUONEB (A & A) INH SCH ×6 (03:24→23:17)
[2018-09-02] MEDS: HUMALOG SUBQ SCH ×8 (06:18→21:00)
[2018-09-02 07:16] LABS: BASO# 0.01 X1000 (0.0-0.2); BASO% 0.1 % (0.0-0.8); HEMATOCRIT 39.4 % (37.0-47.0); HEMOGLOBIN 12.5 g/dL (12.0-16.0); IMM GRAN# 0.03 X1000 (0.0-0.04); IMM GRAN% 0.3 % (0.0-0.5); LYMPH# 1.36 X1000 (1.2-3.4); LYMPH% 15.3 % (20.5-51.1); MCH 27.9 PG (27-31); MCHC 31.7 g/dL (33-37); MCV 87.9 FL (81-99); MONO# 0.52 X1000 (0.11-0.59); MONO% 5.9 % (1.7-9.3); MPV 11.2 FL (7.4-10.4); NEUT# 6.96 X1000 (1.4-6.5); NEUT% 78.4 % (42.2-75.2); PLT 220 X1000 (130-400); RBC 4.48 XMIL (4.2-5.4); RDW 14.9 % (11.5-14.5); WBC 8.88 X1000 (4.8-10.8)
[2018-09-02 07:31] LABS: AGAP 11; BUN 27 mg/dL (8-22); CALCIUM 8.6 mg/dL (8.8-10.2); CHLORIDE 98 mmol/L (98-107); COSMO 299; CREATININE 0.6 mg/dL (0.5-0.9); ESTIMATED GFR > 60; GLUCOSE 289 mg/dL (70-104); MAGNESIUM 2.1 mg/dL (1.5-2.7); POTASSIUM 3.7 mmol/L (3.5-5.1); SODIUM 142 mmol/L (136-145); TCO2 33 mmol/L (25-35)
[2018-09-02] MEDS: SYMBICORT 160/4.5 MICROGM INHALER INH SCH ×2 (09:06→19:29)
[2018-09-02] MEDS: SOLU-MEDROL IV SCH (09:37)
[2018-09-02] MEDS: PRAVACHOL PO SCH (09:37)
[2018-09-02] MEDS: BIDEX PO SCH ×2 (09:37→15:00)
[2018-09-02] MEDS: MAG-OX PO SCH (09:37)
[2018-09-02] MEDS: LANOXIN PO SCH (09:37)
[2018-09-02] MEDS: LASIX PO SCH (09:38)
[2018-09-02] MEDS: PRILOSEC PO SCH (09:38)
[2018-09-02] MEDS: NEURONTIN PO SCH ×3 (09:38→21:00)
[2018-09-02] MEDS: COZAAR PO SCH (09:38)
[2018-09-02] MEDS: COREG PO SCH ×2 (09:38→21:00)
[2018-09-02] MEDS: ROCEPHIN 1 GM in NS 50 ML IV SCH (09:39)
[2018-09-02] MEDS: ZITHROMAX 500 MG/NS 500 MG/250 ML IVPB IV SCH (10:45)
[2018-09-02] MEDS ORDERED: BASAGLAR SUBQ ONE (13:16)
--- NOTE | 2018-09-02 15:04 | PROGRESS NOTE ---
DATE: 09/02/2018 INTERVAL HISTORY: No acute events overnight. She continues to have hyperglycemia. I have ordered additional dose of 1 time Lantus. I have increased her mealtime insulin as well. Patient denies any symptoms. She is feeling significantly better, not in any acute distress. Currently temperature 97.5 degrees, pulse 74, respiratory rate 16, blood pressure 127/38 saturating 97% on 4 L nasal cannula. PHYSICAL EXAMINATION: Appears morbidly obese not in any acute distress. No pallor, cyanosis, clubbing or icterus. Oral cavity is moist. No thrush. Air entry bilaterally equal. No wheeze, rhonchi, or crackles. S1, S2 normal. No murmur, rub, or gallop.Abdomen: Soft, nontender. No lower extremity edema. Neurologic: She is alert and oriented x3. LABS: CBC and BMP are unremarkable except hyperglycemia. Sputum culture, blood culture no growth till date. ASSESSMENT AND PLAN: 1. Acute hypercarbic respiratory failure on top of chronic hypoxic hypercarbic respiratory failure due to acute chronic obstructive pulmonary disease exacerbation. Continue albuterol ipratropium nebulization every 4 hours scheduled with home Symbicort. Stop intravenous steroids and start patient on p.o. steroids. Continue intravenous ceftriaxone, azithromycin. Sputum and blood culture has been no growth till date. The plan is to change antibiotics to levofloxacin at the time of discharge to complete about 5 days course. 2. History of paroxysmal atrial fibrillation with rapid ventricular rate and sinus tachycardia during hospital admission currently resolved. Continue home digoxin, carvedilol and Lasix. She has not been on anticoagulation ever as per the history given to me by patient and she does not know the reason. I discussed with her about discussing this with her industrial order clerk as an outpatient. 3. History of insulin-dependent diabetes mellitus with uncontrolled hyperglycemia because of steroid use and also dietary noncompliance while she has been in the hospital. Continue glargine, mealtime insulin and sliding scale insulin. Increase the doses as mentioned above. 4. Others. Continue home dicyclomine for abdominal discomfort, losartan for essential hypertension with carvedilol. 5. Pravastatin for hyperlipidemia. 6. Nighttime BiPAP for her chronic sleep apnea. 7. Disposition. Patient will remain inside the hospital as I monitor her when she starts taking p.o. steroids. If she continues to do better my plan is to discharge her home on p.o. steroids tomorrow. Plan of care discussed with her. All of her questions have been answered. cc: Asa Manuel MD
[2018-09-02] MEDS: TYLENOL PO PRN (17:39)
[2018-09-02] MEDS: LOVENOX SUBQ SCH ×2 (17:39→17:48)
[2018-09-02] MEDS ORDERED: PREDNISONE PO ONE (18:00)
[2018-09-02] MEDS: BASAGLAR SUBQ SCH (21:00)
[2018-09-03] MEDS: DUONEB (A & A) INH SCH ×4 (03:22→15:37)
[2018-09-03] MEDS: BIDEX PO SCH ×3 (05:20→18:19)
[2018-09-03] MEDS: HUMALOG SUBQ SCH ×6 (06:50→17:36)
[2018-09-03] MEDS: SYMBICORT 160/4.5 MICROGM INHALER INH SCH (07:23)
--- NOTE | 2018-09-03 08:09 | EKG Report ---
Test Performed on : 09/01/2018 10:19:30 AM Test Reason : Tachycardia. R/o A Fib. Blood Pressure : / mmHG Vent. Rate : 099 BPM Atrial Rate : 099 BPM P-R Int : 154 ms QRS Dur : 086 ms QT Int : 338 ms P-R-T Axes : 000 196 166 degrees QTc Int : 433 ms Poor data quality, interpretation may be adversely affected Normal sinus rhythm. Right superior axis deviation T wave abnormality, consider inferior ischemia Abnormal ECG When compared with ECG of 30-AUG-2018 09:09, (Unconfirmed) QRS axis shifted left T wave inversion now evident in Lateral leads Unconfirmed Result
[2018-09-03] MEDS: MAG-OX PO SCH (08:30)
[2018-09-03] MEDS: PRAVACHOL PO SCH (08:30)
[2018-09-03] MEDS: LASIX PO SCH (08:30)
[2018-09-03] MEDS: COZAAR PO SCH (08:30)
[2018-09-03] MEDS: LANOXIN PO SCH (08:30)
[2018-09-03] MEDS: PRILOSEC PO SCH (08:30)
[2018-09-03] MEDS: NEURONTIN PO SCH ×3 (08:30→18:35)
[2018-09-03] MEDS: ROCEPHIN 1 GM in NS 50 ML IV SCH (08:31)
[2018-09-03] MEDS: COREG PO SCH (08:31)
[2018-09-03] MEDS ORDERED: PREDNISONE PO SCH (09:00)
[2018-09-03] MEDS: TYLENOL PO PRN (11:15)
[2018-09-03] MEDS: ZITHROMAX 500 MG/NS 500 MG/250 ML IVPB IV SCH (11:29)
[2018-09-03] MEDS ORDERED: COZAAR PO ONE (12:38)
[2018-09-03] MEDS ORDERED: BASAGLAR SUBQ ONE (14:02)
[2018-09-03 15:51] VITALS: BP 159/77
[2018-09-03] MEDS: LOVENOX SUBQ SCH (18:20)
--- NOTE | 2018-09-03 19:53 | DISCHARGE SUMMARY ---
ADMISSION DATE: 08/30/2018 DISCHARGE DATE: 09/03/2018 DISCHARGE DIAGNOSES: 1. Acute hypercarbic respiratory failure on top of chronic hypoxic hypercarbic respiratory failure. 2. Acute chronic obstructive pulmonary disease exacerbation. 3. Chronic left lung fibrosis. 4. Sinus tachycardia. 5. Insulin-dependent diabetes mellitus with steroid-induced hyperglycemia uncontrolled. 6. Obstructive sleep apnea. 7. Morbid obesity. OTHER DIAGNOSES: 1. History of morbid obesity, history of COPD on home oxygen. 2. History of chronic hypoxic respiratory failure. 3. History of obstructive sleep apnea with home nighttime BiPAP use. 4. History of insulin-dependent diabetes mellitus. 5. History of chronic abdominal pain and occasional nausea. 6. History of hyperlipidemia. 7. Chronic pain. 8. History of suspected paroxysmal atrial fibrillation however unclear documentation. The patient has not been on any anticoagulation. She only had sinus tachycardia during this admission on EKG. 9. History of essential hypertension. 10. History of gastroesophageal reflux disease. CONSULTATIONS: None. DISCHARGE MEDICATION: Insulin glargine 60 units at nighttime. The patient was also advised to take 30 units in the morning time and adjust the dose according to blood sugar response after talking with primary care provider, Arformoterol nebulization 15 mcg q.12 hours, trazodone 150 mg at nighttime as needed, fluticasone 50 mcg nasal spray 1 spray intranasally at nighttime, furosemide 40 mg as needed for leg swelling, gabapentin 100 mg t.i.d., insulin lispro 18 units subcu daily, the patient was advised to take 20 units with meals as long as she is on steroids, potassium chloride 10 mEq daily, digoxin 125 mcg daily, magnesium oxide 400 mg daily, pravastatin 20 mg daily, montelukast 10 mg at nighttime, Tiotropium 1 puff inhaled daily, Symbicort 1 puff inhaled b.i.d., citalopram 20 mg at nighttime which could not be confirmed, albuterol nebulization 2.5 mg inhaled q.6 hours, dicyclomine 20 mg p.o. daily as needed for abdominal cramps, carvedilol 25 mg b.i.d., losartan 100 mg daily, prednisone taper she should take 40 mg per day 1 to day 3, 20 mg for day 4 to 6, 10 mg for day 7 and 8, omeprazole 40 mg daily, ondansetron 4 mg p.o. q.6 hours p.r.n. for chronic nausea 30 tablets have been prescribed. Vitals at the time of discharge, temperature 98.3 degrees, pulse 76, respiratory rate 18, blood pressure 170/78. An additional 50 mg losartan was given and patient was informed to take higher dose of losartan at home from 50 mg daily dose to 100 mg daily, saturating 96% on 3 to 4 L nasal cannula. PHYSICAL EXAMINATION: Morbidly obese not in any acute distress. Oral cavity is moist. Air entry bilaterally equal, no wheeze, rhonchi, crackles. S1, S2 normal. No murmur or gallop. Abdomen soft, obese, nontender. No lower extremity edema. Patient did not appear in acute distress. She was alert, oriented x3. LABS AT DISCHARGE: WBC 8000, hemoglobin 12.5, platelet count 220,000. Normal electrolytes, BUN of 27, creatinine of 0.6, blood sugar of 299. Significant microbiology during hospital admission, sputum culture and blood culture did not show any growth. Her influenza screen was negative. SIGNIFICANT IMAGING: Chest x-ray had detected atelectasis versus pneumonia of left lower lobe. Chest CT had detected COPD, chronic scarring and stable mediastinal adenopathy. HOSPITAL COURSE SUMMARY: Ms. Chase is 67 years old lady who initially presented with complaints of dyspnea. Apparently patient's dyspnea was started a week ago with a low-grade fever, cough with sputum production and some red tinged sputum about 10 days prior to presentation. She also had mild orthopnea, lower extremity edema and some chest discomfort but her cough was the main complaint. She had gone to see a doctor and was given oral antibiotics which did not help so she had followed up with her regular doctor who had suggested patient should go to the emergency room for evaluation of the pneumonia. She was on arrival found to have acute hypercarbic respiratory failure with pH of 7.3, pCO2 of 71 and PO2 of 74 on 3 L nasal cannula. She was started on intravenous antibiotics, intravenous steroids and was given oxygen through nasal cannula and nighttime BiPAP. The ABG repeat analysis the next day had pH of 7.37, pCO2 of 64 and pO2 of 68 on 40% BiPAP. Patient shortness of breath during hospitalization improved on intravenous antibiotics and intravenous steroids which were later on transitioned to p.o. steroids. Echocardiogram performed for bilateral lower extremity had ejection fraction of 70% without any regional wall motion abnormality. At the time of discharge patient's sputum and blood culture remained negative and antibiotics were stopped after about 5 days duration. She was discharged on prednisone taper. She also had significant hyperglycemia and had required a very large amount of insulin. She was advised to take larger amount of insulin and keep checking blood sugars. She was also there was a concern about patient's dietary noncompliance while inside the hospital. She was instructed to be on diabetic diet and keep blood sugar checks and follow up with regular doctor. Plan of care discussed with the patient. All of her questions have been answered. More than 30 minutes of time was spent in preparing discharge summary. The patient will be discharged to home. cc: Asa Manuel MD MTDD
[2018-09-04] MEDS: DUONEB (A & A) INH SCH ×2 (06:16→06:17)
[2018-09-04] MEDS: SYMBICORT 160/4.5 MICROGM INHALER INH SCH (06:18)
[2018-09-04] MEDS ORDERED: COZAAR PO SCH (09:00)
== END 2018-09-03 20:30 | disposition home or self-care (01) | DRG 190 ==
LOC: ED 08:32 → 3N 13:47
PROVIDERS: ATTEND Internal Medicine
CPT/HCPCS: 71010; 71045; 71260; 80048; 80053; 80162; 81001; 82550; 82805; 82948; 83036; 83605; 83735; 83880; 84484; 85025; 85610; 85730; 87040; 87070; 87205; 87275; 87276; 87804; 93005; 93010; 93306; 94640; 94660; 94761; 94799; 96365; 96366; 96367; 96375; 99285; A9270; C8929; J0456; J0696; J1160; J1650; J1815; J1940; J2920; J2930; J7506; J7512; Q9957; Q9967; XXXXX